=== PATIENT | female | born 1970 | race African-American/Black ===

== ENCOUNTER 2018-01-17 20:21 | Emergency (ER) | payer BC ==
--- NOTE | 2018-01-17 20:24 | PDOC ---
History of Present Illness - General History Source: Patient Exam Limitations: No Limitations - History of Present Illness Initial Comments: 01/17/18 20:43 A portion of this note was documented by scribe services under my direction. I have reviewed the details of the note, within reason, and agree with the documentation. The case summary and management plan written by me. Assessment plan: This is a 47-year-old female comes in complaining of low back pain. Patient denies any radiation to her leg however she does have a positive right leg test on the right. Patient does have history of an old injury in the past that has not bothered her for many years ago. 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 <Juan Carlos Martinez I - Last Filed: 01/17/18 21:06> - General History Source: Patient Exam Limitations: No Limitations - History of Present Illness Initial Comments: 01/17/18 20:53 The patient is a 47 year old female, with a significant PMH of back pain and diastasis,who presents to the emergency department today complaining of back pain that began earlier this morning. Patient notes the pain is localized to her lumbar spine, and is getting progressively worse with time. Patient notes she did pilates a day prior but did not have any pain immediately after. Patient states her pain began upon getting out of bed this morning. She complains that the pain is tolerable when sitting still, but she cannot sit all the way back. Patient notes the pain is exacerbated with trying to get up from a seated position, standing, and when lifting her right leg, no relief with theracare and two Aleves. Patient confirms having back pain the past on two separate occasions: the first was years ago after an accident on an escalator and the second was a year ago after prolonged sitting at an old job. Both instances were resolved with physical therapy. The patient denies any trauma, numbness and tingling to the back. Denies chest pain, shortness of breath, headache and dizziness. Denies fever, chills, nausea, vomit, diarrhea and constipation. PAST SURGICAL HISTORY: None reported FAMILY HISTORY: no pertinent history SOCIAL HISTORY: Pt lives with family and is employed. MEDICATIONS: reviewed ALLERGIES: Latex Adult ROS General: No fevers or chills, no weakness, no weight loss HEENT: No change in vision. No sore throat,. No ear pain CardioVascular: No chest pain or shortness of breath Respiratory:No cough, or wheezing. Gastrointestinal: no nausea, vomiting, diarrhea or constipation, No rectal bleeding Genitourinary: No dysuria, hematuria, or frequency Musculoskeletal: +Back pain. Neurologic: No headache, vertigo, dizziness or loss of consciousness Psychiatric: nor depression Skin: No rashes or easy bruising Endocrine: no increased thirst or abnormal weight change Allergic: no skin or latex allergy All other systems reviewed and normal Basic PE GENERAL: The patient is awake, alert, and fully oriented, in no acute distress. HEAD: Normal with no signs of trauma. EYES: Pupils equal, round and reactive to light, extraocular movements intact, sclera anicteric, conjunctiva clear. EXTREMITIES: +Right leg positive 45 degree and left leg negative. No edema. NEUROLOGICAL: +Tenderness to palpation to the L5- S1 area and tenderness to the left spinal area. Normal speech, normal gait. Neurovascular intact. PSYCH: Normal mood, normal affect. SKIN: Warm, Dry, normal turgor, no rashes or lesions noted. <Flavio Han - Last Filed: 01/17/18 21:10> - General Chief Complaint: Back Pain Stated Complaint: BACK PAIN Time Seen by Provider: 01/17/18 20:23 Past History <Juan Carlos Martinez I - Last Filed: 01/17/18 21:06> <Flavio Han - Last Filed: 01/17/18 21:10> - Past Medical History Allergies/Adverse Reactions: Allergies Allergy/AdvReac Type Severity Reaction Status Date / Time latex Allergy Verified 01/17/18 20:22 Home Medications: Ambulatory Orders Cyclobenzaprine HCl [Flexeril 10 mg] 10 mg PO BID PRN #14 tablet 01/17/18 Naproxen Sodium [Aleve] 2 tab PO ASDIR 01/17/18 Naproxen [Naprosyn -] 500 mg PO BID #14 tablet 01/17/18 *Physical Exam - Vital Signs Last Vital Signs Temp Pulse Resp BP Pulse Ox 98.1 F 75 18 129/82 100 01/17/18 20:21 01/17/18 20:21 01/17/18 20:21 01/17/18 20:21 01/17/18 20:21 <Flavio Han - Last Filed: 01/17/18 21:10> *DC/Admit/Observation/Transfer - Discharge Dispostion Decision to Admit order: No <Juan Carlos Martinez I - Last Filed: 01/17/18 21:06> - Attestations Scribe Attestion: 01/17/18 20:54 Documentation prepared by Flavio Han, acting as medical sonographer for Juan Carlos Martinez MD. <Flavio Han - Last Filed: 01/17/18 21:10> Diagnosis at time of Disposition: Low back pain Qualifiers: Chronicity: acute Back pain laterality: left Sciatica presence: without sciatica Qualified Code(s): M54.5 - Low back pain - Discharge Dispostion Disposition: HOME Condition at time of disposition: Stable - Prescriptions Prescriptions: Cyclobenzaprine HCl [Flexeril 10 mg] 10 mg PO BID PRN #14 tablet PRN Reason: Pain Naproxen [Naprosyn -] 500 mg PO BID #14 tablet - Referrals Referrals: Natalia Sultana MD [Primary Care Provider] - - Patient Instructions Additional Instructions: Take naproxen 1 tablet twice a day with food don't take on an empty stomach. Take Flexeril one tablet twice a day try limiting it to the nighttime hours however as it will make you drowsy and you cannot work if you are taking it. Call the orthopedic group here at the hospital their phone number is [phone] for an appointment in the morning tell them you were in the ER and we Referred you to them. Return to the emergency department immediately with ANY new, persistent or worsening symptoms. Continue any medications as previously prescribed by your physician. You should follow up with your primary doctor as soon as possible regarding today's emergency department visit. . Please make sure your doctor reviews the results of your emergency evaluation. Thank you for coming to the Emergency Department today for your care. It was a pleasure to see you today. Please note that your evaluation is INCOMPLETE until you follow-up with your doctor. - Post Discharge Activity Forms/Work/School Notes: Back to Work
[2018-01-17] MEDS ORDERED: predniSONE 20 MG TABLET (UD) PO ONE (20:34)
[2018-01-17] MEDS ORDERED: KETOROLAC TROMETHAMINE 60 MG/2 ML VIAL IM ONE (20:34)
[2018-01-17 20:35] VITALS: BP 129/82; PULSE 75; TEMP 98.1; BMI 25.8
[2018-01-17] MEDS ORDERED: predniSONE 20 MG TABLET (UD) ONE (20:40)
[2018-01-17] MEDS ORDERED: KETOROLAC TROMETHAMINE 60 MG/2 ML VIAL ONE (20:40)
== END 2018-01-17 21:05 | disposition home or self-care (01) ==
LOC: FER 20:21
PROC: 3E0233Z Introduction of Anti-inflammatory into Muscle, Percutaneous Approach (ICD-10-PCS; principal; 2018-01-17)
DX: M54.5 Low back pain (principal)
CPT/HCPCS: 99283-25

== ENCOUNTER 2020-09-02 13:30 | Emergency (ER) | payer BC, OTHER ==
[2020-09-02 13:59] VITALS: BP 118/79; PULSE 73; TEMP 98; BMI 24.0
[2020-09-02] MEDS ORDERED: SODIUM BICARBONATE 8.4% 50 MEQ/50 ML VIAL NR ONE (14:15)
[2020-09-02] MEDS ORDERED: LIDOCAINE HCL 2% (50ML VIAL) INF ONE (14:15)
[2020-09-02] MEDS ORDERED: DIPHTH,PERTUSS(ACELL),TET 0.5 ML DISP.SYRIN IM ONE ×2 (14:15→14:32)
[2020-09-02] MEDS ORDERED: SODIUM BICARBONATE 8.4% 50 MEQ/50 ML VIAL ONE (14:20)
[2020-09-02] MEDS ORDERED: LIDOCAINE HCL 2% (20ML MULTI-DOSE VIAL) ONE (14:20)
[2020-09-02] MEDS ORDERED: IBUPROFEN 600 MG TABLET (FP) PO ONE (14:55)
[2020-09-02] MEDS ORDERED: IBUPROFEN 400 MG TABLET (FP) PO ONE ×2 (14:59)
== END 2020-09-02 15:07 | disposition home or self-care (01) ==
LOC: FER 13:30
PROC: 0HQFXZZ Repair Right Hand Skin, External Approach (ICD-10-PCS; principal; 2020-09-02)
PROC: 3E0234Z Introduction of Serum, Toxoid and Vaccine into Muscle, Percutaneous Approach (ICD-10-PCS; 2020-09-02)
DX: S61.011A Laceration without foreign body of right thumb without damage to nail, initial encounter (principal)
CPT/HCPCS: 90715; 99284-25

== ENCOUNTER 2020-09-16 19:56 | Emergency (ER) | payer OTHER ==
[2020-09-16 20:04] VITALS: BP 127/83; PULSE 77; TEMP 98.7; BMI 24.0
== END 2020-09-16 20:18 | disposition home or self-care (01) ==
LOC: FER 19:56
DX: Z48.02 Encounter for removal of sutures (principal)
CPT/HCPCS: 99281-25